=== PATIENT | female | born 1930 | race African-American/Black ===

== ENCOUNTER 2016-09-29 06:56 | Emergency (ER) | payer OTHER ==
[~2016-09-29] VITALS: Ht 157.5 cm; Wt 63.6 kg
[~2016-09-29 06:56] MED LIST: AMLO10TA80 PO; ATOR10TA69 PO; SERT25TA74 PO
[2016-09-29 10:25] VITALS: BP 160/89
== END 2016-09-29 10:40 | disposition home or self-care (01) ==
LOC: ER 08:36
DX: H10.023 Other mucopurulent conjunctivitis, bilateral (principal); I10 Essential (primary) hypertension; Z98.890 Other specified postprocedural states
CPT/HCPCS: 99283